=== PATIENT | female | born 1965 | race Two or more races ===

== ENCOUNTER 2016-06-23 20:09 | Emergency (ER) | payer OTHER ==
--- NOTE | 2016-06-23 20:46 | PDOC ---
Rapid Medical Evaluation Time Seen by Provider: 06/23/16 20:40 Medical Evaluation: Allergies Allergy/AdvReac Type Severity Reaction Status Date / Time house dust Allergy Mild Itching Verified 12/26/14 00:01 06/23/16 20:42 I have performed a brief in-person evaluation of this patient. The patient presents with a chief complaint of: dysuria and frequency, suprapubic pressure Pertinent physical exam findings: VSS I have ordered the following: ua, ucx The patient will be seen in fast track
[2016-06-23 20:48] VITALS: BP 159/87; PULSE 72; TEMP 98; BMI 22.6
--- NOTE | 2016-06-23 20:58 | PDOC ---
History of Present Illness - General History Source: Patient Exam Limitations: No Limitations - History of Present Illness Initial Comments: 06/23/16 21:08 The patient is a 51 year old female with significant past medical history of hypertension who presents to the ED with dysuria and hesitancy that began earlier this evening. Patient denies pelvic/abdominal pain, flank pain, hematuria, urgency, and frequency. The patient denies fever, chills, cough, SOB, chest pain, and palpitations. The patient denies nausea, vomiting, and diarrhea. Allergies: NKDA Social History: No alcohol, tobacco, or drug use reported. Past Surgical History: None reported PCP: Dr. Yobani Fallon <Alicia Somers - Last Filed: 06/23/16 21:08> - General History Source: Patient <Sotero Michel - Last Filed: 06/23/16 21:51> - General Chief Complaint: Urinary Problem Stated Complaint: URINARY PROBLEM Time Seen by Provider: 06/23/16 20:40 Past History <Alicia Somers - Last Filed: 06/23/16 21:08> - Past Medical History Anemia: No Asthma: No Cancer: No Cardiac Disorders: No CVA: No COPD: No CHF: No Dementia: No Diabetes: No GI Disorders: No Disorders: No HTN: No Hypercholesterolemia: No Liver Disease: No Seizures: No Thyroid Disease: No - Immunization History Immunization Up to Date: Yes - Psycho/Social/Smoking Cessation Hx Anxiety: No Suicidal Ideation: No Smoking Status: No Smoking History: Never smoked Have you smoked in the past 12 months: No Number of Cigarettes Smoked Daily: 0 Cigars Per Day: 0 Information on smoking cessation initiated: No Hx Alcohol Use: No Drug/Substance Use Hx: No Substance Use Type: None <Sotero Michel - Last Filed: 06/23/16 21:51> - Past Medical History Allergies/Adverse Reactions: Allergies Allergy/AdvReac Type Severity Reaction Status Date / Time house dust Allergy Mild Itching Verified 06/23/16 20:48 No Known Drug Allergies Allergy Verified 06/23/16 21:09 pickles Allergy Mild Itching Uncoded 06/23/16 21:09 Home Medications: Ambulatory Orders Amlodipine Besylate [Norvasc -] 10 mg PO DAILY 06/23/16 Phenazopyridine HCl [Pyridium] 100 mg PO TID #6 tablet 06/23/16 Sulfamethoxazole/Trimethoprim [Bactrim *Ds*] 1 tab PO BID #14 tablet 06/23/16 Review of Systems - Review of Systems Able to Perform ROS?: Yes Comments:: 06/23/16 21:08 CONSTITUTIONAL: Absent: fever, no chills, no fatigue EYES: Absent: visual changes ENT: Absent: ear pain, no sore throat CARDIOVASCULAR: Absent: chest pain, no palpitations RESPIRATORY: Absent: cough, no SOB GI: Absent: abdominal pain, no nausea, no vomiting, no constipation, no diarrhea GENITOURINARY: +dysuria, hesitancy Absent: no frequency, no hematuria MUSKULOSKELETAL: Absent: back pain, no arthralgia, no myalgia SKIN: Absent: rash NEURO: Absent: headache <Alicia Somers - Last Filed: 06/23/16 21:08> *Physical Exam - Vital Signs Last Vital Signs Temp Pulse Resp BP Pulse Ox 98.0 F 72 17 159/87 100 06/23/16 20:44 06/23/16 20:44 06/23/16 20:44 06/23/16 20:44 06/23/16 20:44 - Physical Exam Comments: 06/23/16 21:09 GENERAL: Well-appearing, well-nourished. No apparent distress. HEENT: Normocephalic, atraumatic. PERRL, EOM intact. CARDIOVASCULAR: Normal S1, S2. Regular rate and rhythm. PULMONARY: Clear to auscultation bilaterally. ABDOMEN: Soft, non-distended, non-tender. EXTREMITIES: Normal ROM in all four extremities. No gross deformities. SKIN: Warm, dry. No rash NEUROLOGICAL: No focal neurological deficits. <Alicia Somers - Last Filed: 06/23/16 21:08> - Vital Signs Last Vital Signs Temp Pulse Resp BP Pulse Ox 98.0 F 72 17 159/87 100 06/23/16 20:44 06/23/16 20:44 06/23/16 20:44 06/23/16 20:44 06/23/16 20:44 <Sotero Michel - Last Filed: 06/23/16 21:51> Medical Decision Making - Medical Decision Making 06/23/16 21:51 Dr. Michel: The scribe's documentation has been prepared under my direction and personally reviewed by me in its entirery. I confirm that the note above accurately reflects all work, treatment, procedures, and medical decision making performed by me. <Sotero Michel - Last Filed: 06/23/16 21:51> *DC/Admit/Observation/Transfer - Attestations Scribe Attestion: 06/23/16 21:09 Documentation prepared by Alicia Somers, acting as medical researcher for Sotero Michel MD <Alicia Somers - Last Filed: 06/23/16 21:08> - Discharge Dispostion Admit: No <Sotero Michel - Last Filed: 06/23/16 21:51> Diagnosis at time of Disposition: UTI (urinary tract infection) Qualifiers: Urinary tract infection type: site unspecified Hematuria presence: without hematuria Qualified Code(s): N39.0 - Urinary tract infection, site not specified - Discharge Dispostion Disposition: HOME Condition at time of disposition: Stable - Prescriptions Prescriptions: Sulfamethoxazole/Trimethoprim [Bactrim *Ds*] 1 tab PO BID #14 tablet Phenazopyridine HCl [Pyridium] 100 mg PO TID #6 tablet - Referrals Referrals: Yobani Fallon MD [Primary Care Provider] - - Patient Instructions Printed Discharge Instructions: DI for Urinary Tract Infection (UTI)
[2016-06-23 21:26] LABS: URINE APPEARANCE CLEAR; URINE BILIRUBIN NEGATIVE (NEGATIVE); URINE COLOR COLORLESS; URINE GLUCOSE (UA) NEGATIVE (NEGATIVE); URINE KETONE NEGATIVE (NEGATIVE); URINE NITRITE NEGATIVE (NEGATIVE); URINE PROTEIN NEGATIVE (NEGATIVE); URINE UROBILINOGEN NEGATIVE E.U./dl (0.2-1.0)
[2016-06-23 21:34] LABS: URINE BLOOD 1+ (NEGATIVE); URINE LEUK ESTERASE 1+ (NEGATIVE)
[2016-06-23 21:37] LABS: URINE MUCUS RARE; URINE RBC 2 /hpf (0-3); URINE WBC 17 /hpf (3-5)
[2016-06-23] MEDS ORDERED: SULFAMETHOXAZOLE/TRIMETHOPRIM 800MG/160MG D.S. TABLET PO ONE (21:48)
[2016-06-23] MEDS ORDERED: PHENAZOPYRIDINE HCL 100 MG TABLET (FP) PO STA (21:48)
[2016-06-23] MEDS ORDERED: SULFAMETHOXAZOLE/TRIMETHOPRIM 800MG/160MG D.S. TABLET ONE (21:54)
[2016-06-23] MEDS ORDERED: PHENAZOPYRIDINE HCL 100 MG TABLET (FP) ONE (21:55)
== END 2016-06-23 22:24 | disposition home or self-care (01) ==
LOC: SUPCPDRO 20:09 → JERFT 20:09
DX: N39.0 Urinary tract infection, site not specified (principal)
CPT/HCPCS: 81003; 81015; 87086; 99282-25

== ENCOUNTER 2016-08-19 08:59 | Emergency (ER) | payer OTHER ==
[2016-08-19 09:06] VITALS: BMI 25.6
--- NOTE | 2016-08-19 09:41 | PDOC ---
History of Present Illness <Matheus Wen - Last Filed: 08/19/16 14:26> - History of Present Illness Initial Comments: 08/19/16 15:28 Patient is a 51 year old female with significant medical hx of HTN who is presenting to the ED with intermittent epigastric pain for three days. The patient reports her pain is waxing and waning that comes on for a few seconds at a time. Her pain is described as a pressure but not accompanied with any nausea or vomiting. The patient also endorses several episodes of diarrhea yesterday that improved after taking imodium. Patient denies any bloody stool/ blank stool. Denies any fevers, chills, dysuria, hematuria, or sick contacts. PMD: Yobani Fallon MD Social Hx: Denies alcohol, tobacco, or drug use. Surgical Hx: Hysterectomy Allergies: NKDA <Rashmi Moncada - Last Filed: 08/19/16 15:30> - General Chief Complaint: Pain Stated Complaint: STOMACH PAIN Time Seen by Provider: 08/19/16 09:36 Past History - Past Medical History Anemia: No Asthma: No Cancer: No Cardiac Disorders: No CVA: No COPD: No CHF: No Dementia: No Diabetes: No GI Disorders: No Disorders: No HTN: Yes Hypercholesterolemia: No Liver Disease: No Seizures: No Thyroid Disease: No - Immunization History Immunization Up to Date: Yes - Psycho/Social/Smoking Cessation Hx Anxiety: No Suicidal Ideation: No Smoking Status: No Smoking History: Never smoked Have you smoked in the past 12 months: No Number of Cigarettes Smoked Daily: 0 Cigars Per Day: 0 Information on smoking cessation initiated: No Hx Alcohol Use: No Drug/Substance Use Hx: No Substance Use Type: None <Matheus Wen - Last Filed: 08/19/16 14:26> <Rashmi Moncada - Last Filed: 08/19/16 15:30> - Past Medical History Allergies/Adverse Reactions: Allergies Allergy/AdvReac Type Severity Reaction Status Date / Time house dust Allergy Mild Itching Verified 08/19/16 09:04 No Known Drug Allergies Allergy Verified 08/19/16 09:04 pickles Allergy Mild Itching Uncoded 08/19/16 09:04 Home Medications: Ambulatory Orders Amlodipine Besylate [Norvasc -] 10 mg PO DAILY 06/23/16 Review of Systems - Review of Systems Comments:: 08/19/16 15:29 CONSTITUTIONAL: No reported: Fever, Chills, Diaphoresis, Generalized Weakness, Malaise, Loss of Appetite HEENT: No reported: Rhinorrhea, Nasal Congestion, Throat Pain, Throat Swelling, Difficulty Swallowing, Mouth Swelling, Ear Pain, Eye Pain, Visual Changes CARDIOVASCULAR: No reported: Chest Pain, Syncope, Palpitations, Irregular Heart Rate, Lightheadedness, Peripheral Edema RESPIRATORY: No reported: Cough, Shortness of Breath, SOB with Exertion, Orthopnea, Wheezing , Stridor, Hemoptysis GASTROINTESTINAL: Reported: Abdominal pain, Diarrhea No reported: Abdominal Distension, Nausea, Vomiting, Constipation, Melena, Hematochezia GENITOURINARY: No reported: Dysuria, Frequency, Urgency, Hesitancy, Flank Pain, Genital Pain MUSCULOSKELETAL: No reported: Myalgia, Arthralgia, Joint Swelling, Back pain, Neck Pain SKIN: No reported: Rash, Itching, Pallor HEMEATOLOGIC/IMMUNOLOGIC: No reported: Easy Bleeding, Easy Bruising, Lymphadenopathy, Frequent infections ENDOCRINE: No reported: Unexplained Weight Gain, Unexplained Weight Loss, Heat Intolerance , Cold Intolerance NEUROLOGIC: No reported: Headache, Focal Weakness, Paresthesias, Vertigo, Lightheadedness, Unsteady Gait, Seizure, Mental Status Changes, Incontinence PSYCHIATRIC: No reported: Anxiety, Depression <Rashmi Moncada - Last Filed: 08/19/16 15:30> *Physical Exam - Vital Signs Last Vital Signs Temp Pulse Resp BP Pulse Ox 98 F 92 H 18 153/87 99 08/19/16 09:04 08/19/16 09:04 08/19/16 09:04 08/19/16 09:04 08/19/16 09:04 <Mtaheus Wen - Last Filed: 08/19/16 14:26> - Vital Signs Last Vital Signs Temp Pulse Resp BP Pulse Ox 98 F 92 H 18 153/87 99 08/19/16 09:04 08/19/16 09:04 08/19/16 09:04 08/19/16 09:04 08/19/16 09:04 - Physical Exam Comments: 08/19/16 15:29 GENERAL: The patient is awake, alert, and fully oriented, Nontoxic - in no acute distress. HEAD: Normocephalic, atraumatic. EYES: Extraocular movements intact, sclera anicteric, conjunctiva clear. ENT: Normal voice, Moist mucous membranes. NECK: Normal range of motion, supple LUNGS: Breath sounds equal, clear to auscultation bilaterally. No wheezes, no rhonchi, no rales. HEART: Regular rate and rhythm, without murmur, rub or gallop. ABDOMEN: mild diffuse tenderness, hyperactive bowel sounds. No guarding, no rebound.No CVA tenderness EXTREMITIES: Normal range of motion, no edema. No clubbing or cyanosis. No cords , erythema, or tenderness. NEUROLOGICAL: No facial assymetry, Normal speech, PSYCH: Normal mood, normal affect. SKIN: Warm, Dry, normal turgor. <Rashmi Moncada - Last Filed: 08/19/16 15:30> Heart Score/ECG Review - ECG Impressions Comment:: 08/19/16 14:28 Twelve-lead EKG was performed and reviewed by me. There is normal sinus rhythm with a normal rate. Rate of 78 The axis is normal. The intervals are normal. There is normal R wave progression There are no ST or T wave abnormalities. Impression: Normal twelve-lead EKG <Matheus Wen - Last Filed: 08/19/16 14:26> ED Treatment Course - LABORATORY CBC & Chemistry Diagram: 08/19/16 09:56 08/19/16 09:56 <Matheus Wen - Last Filed: 08/19/16 14:26> - LABORATORY CBC & Chemistry Diagram: 08/19/16 09:56 08/19/16 09:56 - ADDITIONAL ORDERS Additional order review: Laboratory Results 08/19/16 08/19/16 10:45 09:56 Sodium 144 Potassium 3.6 Chloride 105 Carbon Dioxide 28 Anion Gap 11 BUN 9 D Creatinine 0.6 Creat Clearance w eGFR > 60 Random Glucose 95 Calcium 10.0 Total Bilirubin 0.3 D AST 23 ALT 45 Alkaline Phosphatase 98 D Total Protein 7.0 Albumin 3.9 Lipase 131 Urine Color Colorless Urine Appearance Clear Urine pH 7.0 Ur Specific [place] 1.005 Urine Protein Negative Urine Glucose (UA) Negative Urine Ketones Negative Urine Blood 2+ H Urine Nitrite Negative Urine Bilirubin Negative Urine Urobilinogen Negative Ur Leukocyte Esterase Negative Urine RBC 1 Urine WBC 1 Ur Epithelial Cells Rare 08/19/16 09:56 RBC 4.81 MCV 85.6 MCHC 33.1 RDW 13.3 MPV 7.3 L Neutrophils % 64.7 Lymphocytes % 22.9 D Monocytes % 7.3 Eosinophils % 4.3 D Basophils % 0.8 - RADIOLOGY Radiograph Interpretation: 08/19/16 11:27 Abdomen US Impression: Diffuse fatty infiltration of the liver. Reported By: Jose Cummings MD - Medications Given in the ED: ED Medications Discontinued Medications Generic Name Dose Route Start Last Admin Trade Name Natali PRN Reason Stop Dose Admin Ketorolac Tromethamine 30 mg 08/19/16 10:25 08/19/16 10:35 Toradol Injection - IVPUSH 08/19/16 10:26 30 mg ONCE ONE Administration <Rashmi Moncada - Last Filed: 08/19/16 15:30> Medical Decision Making - Medical Decision Making 08/19/16 10:24 51-year-old female presents with 3 days of intermittent abdominal pain seems to be worsening, associated with several episodes of diarrhea without associated fever/chills, n/v On exam the pt is well appearing in no distress, hyperactive bowel sounds but minimal tenderness in epigastrium/ruq. differential includes gb disease/stones vs gastroetneritis will obtain lab work GB US will reassess 08/19/16 13:14 labs reviewed unremarabkle US shows fatty liver w/o other acute pathotlogy pt feeling improved suspect her syptoms are secondary to gastroenteritis abd resassed and it is soft onntender will dc the pt with pmd fu and supportive mangement returnprecautions were discussed I discussed the physical exam findings, ancillary test results and final diagnoses with the patient. I answered all of the patient's questions. The patient was satisfied with the care received and felt comfortable with the discharge plan and treatment plan. The patient will call their primary care physician within 24 hours to arrange follow-up and will return to the Emergency Department with any new, persistent or worsening symptoms. <Matheus Wen - Last Filed: 08/19/16 14:26> *DC/Admit/Observation/Transfer - Discharge Dispostion Admit: No <Matheus Wen - Last Filed: 08/19/16 14:26> - Attestations Scribe Attestion: 08/19/16 15:30 Documentation prepared by Rashmi Moncada, acting as medical translator for Matheus Wen MD. <Rashmi Moncada - Last Filed: 08/19/16 15:30> Diagnosis at time of Disposition: Diarrhea Qualifiers: Diarrhea type: unspecified type Qualified Code(s): R19.7 - Diarrhea, unspecified Abdominal pain Qualifiers: Abdominal location: generalized Qualified Code(s): R10.84 - Generalized abdominal pain - Discharge Dispostion Disposition: HOME Condition at time of disposition: Improved - Referrals Referrals: Yobani Fallon MD [Primary Care Provider] - - Patient Instructions Printed Discharge Instructions: DI for Abdominal Pain-Adult Additional Instructions: Return to the emergency department immediately with ANY new, persistent or worsening symptoms including worsening abdominal pain, fevers, inability to tolerate oral intake, chest pain, shortness of breath or any other concerns. Stay well hydrated. You MUST call and follow up with your doctor tomorrow. Your emergency department visit is not complete without a followup with your doctor for reevaluation. Please make sure your doctor reviews the results of your emergency evaluation. Print Language: JAPANESE
[2016-08-19] MEDS ORDERED: KETOROLAC TROMETHAMINE 30 MG/1 ML VIAL IVPUSH ONE (10:25)
[2016-08-19] MEDS ORDERED: KETOROLAC TROMETHAMINE 30 MG/1 ML VIAL ONE (10:34)
[2016-08-19 10:41] LABS: BASOPHIL 0.8 % (0-2.0); EOSINOPHIL 4.3 % (0-4.5); MCH 28.3 pg (25.7-33.7); MCHC 33.1 g/dl (32.0-36.0); MEAN CELL VOLUME 85.6 fl (80-96); MEAN PLT VOLUME 7.3 fl (7.5-11.1); NEUTROPHILS 64.7 % (42.8-82.8); PLATELET COUNT 303 K/MM3 (134-434); RDW 13.3 % (11.6-15.6); WHITE BLOOD COUNT 9.1 K/mm3 (4.0-10.0)
[2016-08-19 11:01] LABS: URINE APPEARANCE CLEAR; URINE BILIRUBIN NEGATIVE (NEGATIVE); URINE COLOR COLORLESS; URINE GLUCOSE (UA) NEGATIVE (NEGATIVE); URINE KETONE NEGATIVE (NEGATIVE); URINE LEUK ESTERASE NEGATIVE (NEGATIVE); URINE NITRITE NEGATIVE (NEGATIVE); URINE PROTEIN NEGATIVE (NEGATIVE); URINE UROBILINOGEN NEGATIVE E.U./dl (0.2-1.0)
[2016-08-19 11:04] LABS: URINE BLOOD 2+ (NEGATIVE)
[2016-08-19 11:05] LABS: URINE RBC 1 /hpf (0-3); URINE WBC 1 /hpf (3-5)
[2016-08-19 11:07] LABS: ALBUMIN 3.9 g/dl (3.4-5.0); ANION GAP 11 (8-16); CO2 28 mmol/L (21-32); CREATININE 0.6 mg/dL (0.55-1.02); GLUCOSE,RANDOM 95 mg/dL (74-106); SGOT/AST 23 U/L (15-37); SGPT/ALT 45 U/L (12-78)
[2016-08-19 11:08] LABS: ALK PHOS 98 U/L (45-117); BILIRUBIN,TOTAL 0.3 mg/dL (0.2-1.0)
[2016-08-19 13:35] VITALS: BP 134/90; PULSE 75; TEMP 98.2
--- NOTE | 2016-08-20 11:22 | EKG ---
Test Reason : Blood Pressure : / mmHG Vent. Rate : 078 BPM Atrial Rate : 078 BPM P-R Int : 134 ms QRS Dur : 086 ms QT Int : 382 ms P-R-T Axes : 041 043 017 degrees QTc Int : 435 ms NORMAL SINUS RHYTHM NORMAL ECG WHEN COMPARED WITH ECG OF 27-MAR-2012 10:56, NO SIGNIFICANT CHANGE WAS FOUND Confirmed by BELLE SAUER MD ([id number]) on 08/20/2016 11:22:13 AM Referred By: Confirmed By:BELLE SAUER MD
== END 2016-08-19 13:34 | disposition home or self-care (01) ==
LOC: JER 08:59
PROC: 3E0333Z Introduction of Anti-inflammatory into Peripheral Vein, Percutaneous Approach (ICD-10-PCS; principal; 2016-08-19)
DX: R10.84 Generalized abdominal pain (principal); R19.7 Diarrhea, unspecified; I10 Essential (primary) hypertension
CPT/HCPCS: 36415; 76705-TC; 80053; 81003; 81015; 83690; 85025; 93005; 93010; 96374; 99282-25